=== PATIENT | female | born 1965 | race Hispanic/Latino ===

== ENCOUNTER 2017-09-06 07:57 | Outpatient (CLI) | payer BC ==
--- NOTE | 2017-09-06 14:08 | NM ---
HEPATOBILIARY SCAN: Comparison: None. History: Right upper quadrant abdominal pain. Technique: A hepatobiliary scan was performed after administration of 5.2 mCi Technetium 99M Mebrofe iban. FINDINGS: Prompt uptake of the radiopharmaceutical by the liver is seen. No photopenic liver lesions are seen. Biliary activity is seen within 5 minutes. Gallbladder activity is seen within 10 minutes. Bowel ac tivity is seen within 15 minutes. The gallbladder ejection fraction was estimated after administration of 8 oz of Ensure PO. This was estimated at 61%. IMPRESSION: Normal hepatobiliary scan. POS: [facility]
== END 2017-09-06 07:58 | disposition home or self-care (01) ==
LOC: NM 07:57
PROVIDERS: ATTEND Internal Medicine Gastroenterology
DX: R10.11 Right upper quadrant pain (principal)
CPT/HCPCS: 78227; A9537

== ENCOUNTER 2018-07-23 14:16 | Outpatient (CLI) | payer BC | END 2018-07-23 14:17 | disposition home or self-care (01) | LOC: BICMAMMO 14:16 | DX: Z12.31 Encounter for screening mammogram for malignant neoplasm of breast (principal); Z13.820 Encounter for screening for osteoporosis; Z78.0 Asymptomatic menopausal state; M85.852 Other specified disorders of bone density and structure, left thigh | CPT/HCPCS: 77063; 77067; 77080 ==

== ENCOUNTER 2018-10-03 10:39 | Outpatient (CLI) | payer BC ==
--- NOTE | 2018-10-03 13:15 | RAD ---
LUMBAR SPINE BENDING MINIMUM 4 VIEWS: Date: 10/03/18 HISTORY: Spondylolisthesis. COMPARISON: None. FINDINGS: No acute fracture or malalignment. There is an enlarged left L5 transverse process with anomalous art iculation with the sacrum. No significant listhesis. No translation with flexion or extension. IMPRESSION: 1. No significant translation with flexion or extension. 2. Mild narrowing of the interspinous space between L3-L5 spinous processes. POS: [facility]
== END 2018-10-03 10:40 | disposition home or self-care (01) ==
LOC: BICRAD 10:39
PROVIDERS: ATTEND Anesthesiology Pain Medicine
DX: M43.16 Spondylolisthesis, lumbar region (principal); M48.061 Spinal stenosis, lumbar region without neurogenic claudication
CPT/HCPCS: 72120

== ENCOUNTER 2018-12-08 07:00 | Emergency (ER) | payer BC ==
[2018-12-08 08:00] LABS: #Basophils 0.1 thou/uL (0.0-0.2); #Eosinphils 0.2 thou/uL (0.0-0.7); #Lymphocytes 2.5 thou/uL (1.20-3.40); #Monocytes 0.7 thou/uL (0.11-0.59); #Neutrophils 4.5 thou/uL (1.40-6.50); %Eosinophils 2.4 % (0.0-10.0); %Lymphocytes 31.5 % (21.0-51.0); %Monocytes 8.2 % (0.0-10.0); Hemoglobin 13.3 g/dL (12.0-16.0); Mean Corpuscular HGB CONC 32.1 g/dL (32.0-36.0); Mean Corpuscular Hemoglobin 30.1 pg (27.0-31.0); Mean Corpuscular Volume 93.6 fL (78.0-98.0); Mean Platelet Volume 8.1 fL (7.4-10.4); Platelet Count 317 thou/uL (130-400); Red Blood Cell (RBC) Count 4.41 mill/uL (4.20-5.40); White Blood Cell (WBC) Count 7.9 thou/uL (4.8-10.8)
[2018-12-08] MEDS ORDERED: Acetaminophen 500 MG TAB ONE (08:13)
[2018-12-08] MEDS ORDERED: Nitroglycerin 2% Ointment 1 INCH/1 GM Packet ONE (08:13)
[2018-12-08 08:22] LABS: ALT (SGPT) 13 U/L (8-55); AST (SGOT) 13 U/L (5-34); Albumin 3.4 g/dL (3.5-5.0); Alkaline Phosphatase 49 U/L (40-150); Anion Gap 12 mmol/L (10-20); BUN (Urea Nitrogen) 10 mg/dL (9.8-20.1); Bilirubin, Total 0.5 mg/dL (0.2-1.2); CK (CPK) 22 U/L (29-168); Calc. Creatinine Clearance 0 mL/min (70-130); Calcium 8.8 mg/dL (7.8-10.44); Carbon Dioxide 25 mmol/L (22-29); Chloride 105 mmol/L (98-107); Estimated GFR-MDRD Greater than 90; Globulin 2.9 g/dL (2.4-3.5); Glucose 108 mg/dL (70-105); Potassium 3.6 mmol/L (3.5-5.1); Protein, Total 6.3 g/dL (6.0-8.3); Sodium 138 mmol/L (136-145)
--- NOTE | 2018-12-08 09:02 | RAD ---
CHEST 2 VIEWS: HISTORY: Cough. Dyspnea. COMPARISON: 02/11/2011. FINDINGS: Cardiac silhouette and pulmonary vasculature are unremarkable. Mediastinum is midline. No confluent airspace consolidation, pneumothorax, or pleural fluid. IMPRESSION: No active cardiopulmonary abnormalities are demonstrated. POS: [facility]
--- NOTE | 2018-12-08 10:55 | CT ---
CONTRAST ENHANCED CTA CHEST: Date: 12/08/18 HISTORY: Dyspnea. History of hypertension. Cough for 2 weeks. FINDINGS: Contrast enhanced CTA chest performed. No definite evidence of lung parenchymal mass is seen. Areas of scarring seen in the anterior aspect of the left lower lobe. No definite evidence of pleural or pericardial effusions seen. No evidence of aortic dissection or aneurysm seen. No evidence of filling defects seen in the pulmonary arteries to suggest pulmonary emboli. IMPRESSION: No evidence of pulmonary emboli. POS: [facility]
[2018-12-08] MEDS ORDERED: ISOVUE-370 76%-LOCM 1 ML ONE (11:18)
== END 2018-12-08 11:16 | disposition home or self-care (01) ==
LOC: ERS 07:00
DX: R05 Cough (principal); F41.9 Anxiety disorder, unspecified; F32.9 Major depressive disorder, single episode, unspecified
CPT/HCPCS: 36415; 71046; 71275; 80053; 82550; 83880; 84484; 85025; 85379; 87040; 93005; 94760; 96360; 96361

== ENCOUNTER 2019-05-05 08:35 | Outpatient (CLI) | payer BC ==
--- NOTE | 2019-05-05 10:53 | CT ---
CT Lumbar Spine WO Con History: Lumbar spondylosis, pseudoarthrosis Comparison: Radiograph 2018 Findings: Aortic contour is nonaneurysmal. No retroperitoneal periaortic adenopathy. No hydronephrosi s. No acute fracture or malalignment. 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 Moderate degenerative disease of the SI joints. Levels are as follows: L1/L2: Normal disc. No neural foraminal or spinal canal narrowing. L2/L3: Low-grade circumferential disc bulge. Mild facet arthrosis. Old bilateral neural foraminal jhoan rowing. No significant spinal canal narrowing. L3/L4: Low-grade circumferential disc bulge. Mild facet arthrosis. Mild bilateral neural foraminal na rrowing. Spinal canal is not significantly narrowed. L4/L5: Moderate to severe hypertrophic facet degenerative changes. Low-grade circumferential disc bul ge. Moderate bilateral neural foraminal narrowing. Spinal canal not significantly narrowed. L5/S1: Mild degenerative disc space height loss. Mild facet arthrosis. No significant neural foramina l or spinal canal narrowing. Impression: 1. Mild to moderate spondylosis as described. 2. 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
== END 2019-05-05 08:36 | disposition home or self-care (01) ==
LOC: BICCT 08:35
PROVIDERS: ATTEND Nurse Practitioner Family
DX: S32.009K Unspecified fracture of unspecified lumbar vertebra, subsequent encounter for fracture with nonunion (principal); M47.816 Spondylosis without myelopathy or radiculopathy, lumbar region
CPT/HCPCS: 72131

== ENCOUNTER 2019-07-16 09:01 | Outpatient (CLI) | payer BC ==
--- NOTE | 2019-07-16 10:18 | MRI ---
MRI lumbar spine noncontrast: HISTORY: Low back pain. Bilateral hip pain, times one year COMPARISON: None Correlation: CT lumbar spine 05/05/2019 FINDINGS: Appropriate T1 marrow signal intensity of the lumbar vertebra. Lumbar spine vertebral body height is maintained. No fracture. No significant STIR hyperintensity to suggest vertebral body edema or ligamentous injury. Intrinsic T1 and T2 hyperintensity at L3 and L5 due to vertebral body hemangioma Appropriate signal intensity of the paraspinal muscles. Appropriate signal intensity in the visualize d solid organs T2 hyperintensities in the right lower quadrant (axial image 25 and 26, series 7) evaluated T2 hyperintensities in the left neural foramina at T11-T12, T12-L1 the right neural foramina at T12-L 1 and L1-L2. Multilevel perineural sleeve cysts are favored. T12-L1:Adequate disc hydration. No significant central canal stenosis or significant neural foraminal narrowing L1-L2:Adequate disc hydration. No significant central canal stenosis or significant neural foraminal narrowing. L2-L3:Adequate disc hydration. No significant central canal stenosis or significant neural foraminal narrowing. L3-L4:Adequate disc hydration. Minimal generalized disc bulge, ligament flavum thickening and facet h ypertrophy do not result in any significant central canal stenosis. Minimal narrowing of the thecal sac. Bilaterally, neural foramina are patent. L4-L5:Adequate disc hydration. Broad-based disc bulge abuts the thecal sac. There is bilateral facet hypertrophy. No significant central canal stenosis. Bilaterally, neural foramina are patent. L5-S1:Adequate disc hydration. No significant central canal stenosis. 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 Uncertain significance 2. No significant central canal stenosis or significant neural foraminal narrowing, throughout the jessica mbar spine 3. Incompletely evaluated possible cystic lesions in the right lower quadrant. Consider further evalu ation with abdomen pelvis CT with oral and IV contrast
== END 2019-07-16 09:02 | disposition home or self-care (01) ==
LOC: BICMRI 09:01
PROVIDERS: ATTEND Physician Assistant Surgical
DX: M54.16 Radiculopathy, lumbar region (principal); M53.3 Sacrococcygeal disorders, not elsewhere classified
CPT/HCPCS: 72148

== ENCOUNTER 2019-08-20 08:13 | Outpatient (CLI) | payer BC ==
--- NOTE | 2019-08-20 15:59 | CT ---
CT Abdomen Pelvis W Con: 08/20/2019 12:00 AM CLINICAL INFORMATION: Cyst in the right lower quadrant seen on lumbar MRI COMPARISON: MRI lumbar spine 07/16/2019 TECHNIQUE: Multiple contiguous axial images were obtained and a CT of the abdomen and pelvis with IV contrast. Oral contrast was administered. Coronal and sagittal reformats were performed. FINDINGS: Lower Chest: within normal limits. Abdomen: Liver: within normal limits. Bile Ducts: Normal caliber. Gallbladder: No calcified gallstones. Normal caliber wall. Pancreas: within normal limits. Spleen: within normal limits. Adrenals: within normal limits. Kidneys: within normal limits. Pelvis: Reproductive Organs: Status post hysterectomy. Ureters: within normal limits. Bladder: within normal limits. Peritoneum: No ascites or free air, no fluid collection. Bowel: Normal caliber. There are 2 well-circumscribed oval-shaped cystic structures associated with a loop of small bowel in the right lower quadrant of the abdomen. These each measure approximately 2.7 cm in size. Mesentery and Retroperitoneum: No enlarged mesenteric or retroperitoneal lymph nodes. Vessels: Normal. Abdominal Wall: within normal limits. Bones: Within normal limits IMPRESSION: Cystic structures in the right lower quadrant of the abdomen are nonspecific but likely benign. These could represent ovarian cysts/follicles with an ovarian tissue that is intimately associated with a loop of small bowel in the right lower quadrant of the abdomen. Alternatively, these could represen t enteric duplication cysts.
[2019-08-20] MEDS ORDERED: ISOVUE-370 76%-LOCM 1 ML ONE (18:12)
== END 2019-08-20 08:14 | disposition home or self-care (01) ==
LOC: BICCT 08:13
PROVIDERS: ATTEND Physician Assistant Medical
DX: R19.00 Intra-abdominal and pelvic swelling, mass and lump, unspecified site (principal)
CPT/HCPCS: 74177; Q9966

== ENCOUNTER 2021-02-22 14:43 | Outpatient (CLI) | payer BC | END 2021-02-22 14:44 | disposition home or self-care (01) | LOC: BICMAMMO 14:43 | PROVIDERS: ATTEND Family Medicine | DX: N95.9 Unspecified menopausal and perimenopausal disorder (principal); M85.852 Other specified disorders of bone density and structure, left thigh; M85.851 Other specified disorders of bone density and structure, right thigh | CPT/HCPCS: 77063; 77067; 77080 ==

== ENCOUNTER 2021-04-18 13:55 | Outpatient (CLI) | payer BC ==
[~2021-04-18 13:55] MED LIST: Magnevist 469MG/ML 20 ML VIAL ONE
== END 2021-04-18 13:56 | disposition home or self-care (01) ==
LOC: TBSIIMAG 13:55
PROVIDERS: ATTEND Nurse Practitioner Family
DX: M48.062 Spinal stenosis, lumbar region with neurogenic claudication (principal); M47.816 Spondylosis without myelopathy or radiculopathy, lumbar region; Z98.1 Arthrodesis status
CPT/HCPCS: 72158; A9579

== ENCOUNTER 2021-10-05 14:34 | Outpatient (CLI) | payer BC ==
[2021-10-06 17:37] LABS: SARS-CoV-2 PCR by NAA Not Detected (NotDetected)
== END 2021-10-05 14:35 | disposition home or self-care (01) ==
LOC: LABBT 14:34
PROVIDERS: ATTEND Anesthesiology Pain Medicine
DX: Z01.812 Encounter for preprocedural laboratory examination (principal); Z20.822 Contact with and (suspected) exposure to COVID-19
CPT/HCPCS: U0003; U0005

== ENCOUNTER 2021-10-10 10:33 | Day surgery (SDC) | payer BC ==
[2021-10-09 13:54] VITALS: BMI 32.3
[2021-10-10] MEDS ORDERED: CEFAZOLIN 1 GM VIAL ONE (11:21)
[2021-10-10] MEDS ORDERED: Sodium Chloride 0.9% 100 ML ONE (11:21)
[2021-10-10] MEDS ORDERED: Propofol 500 MG/50 ML VIAL ONE (11:52)
[2021-10-10] MEDS ORDERED: Ketamine 50 MG/ML (10ML VIAL) ONE (11:52)
[2021-10-10] MEDS ORDERED: Fentanyl 100 MCG/2 ML VIAL ONE ×2 (11:52→13:17)
[2021-10-10] MEDS ORDERED: Midazolam HCl 2 mg/2 ml Vial ONE (11:52)
[2021-10-10] MEDS ORDERED: Bupivacaine PF 0.5% 30 ML VIAL ONE (12:19)
[2021-10-10] MEDS ORDERED: EPINEPHrine 1 MG/ML AMP ONE (12:19)
[2021-10-10] MEDS ORDERED: Lidocaine 2% PF 5 ML VIAL ONE (12:19)
[2021-10-10] MEDS ORDERED: Ondansetron PF 4 MG/2 ML Vial ONE (13:49)
[2021-10-10] MEDS ORDERED: Dexamethasone 20 MG/5 ML VIAL ONE (13:49)
[2021-10-10] MEDS ORDERED: HYDROcodone/Acetaminophen 5/325 mg Tablet ONE (16:09)
== END 2021-10-10 16:58 | disposition home or self-care (01) ==
LOC: SDC 10:33
PROVIDERS: ATTEND Anesthesiology Pain Medicine
PROC: 0JH70DZ Insertion of Multiple Array Stimulator Generator into Back Subcutaneous Tissue and Fascia, Open Approach (ICD-10-PCS; principal; 2021-10-10)
PROC: 00HU3MZ Insertion of Neurostimulator Lead into Spinal Canal, Percutaneous Approach (ICD-10-PCS; principal; 2021-10-10)
DX: M96.1 Postlaminectomy syndrome, not elsewhere classified (principal); M54.16 Radiculopathy, lumbar region; G89.4 Chronic pain syndrome; Z79.899 Other long term (current) drug therapy
CPT/HCPCS: 72020; 76000; C1778; C1787; C1820; J0171; J0690; J2001; J2250; J2704; J3010; J3490; L8689; S0020

== ENCOUNTER 2022-06-22 09:37 | Outpatient (CLI) | payer BC | END 2022-06-22 09:38 | disposition home or self-care (01) | LOC: BICRAD 09:37 | PROVIDERS: ATTEND Family Medicine | DX: M25.511 Pain in right shoulder (principal) ==

== ENCOUNTER 2022-07-05 11:44 | Outpatient (CLI) | payer BC | END 2022-07-05 11:45 | disposition home or self-care (01) | LOC: BICMAMMO 11:44 | PROVIDERS: ATTEND Family Medicine | DX: Z12.31 Encounter for screening mammogram for malignant neoplasm of breast (principal) | CPT/HCPCS: 77063; 77067 ==

== ENCOUNTER 2022-10-26 12:11 | Outpatient (CLI) | payer BC ==
[2022-10-26] MEDS ORDERED: Lidocaine 1% PF 5 ML VIAL ONE (13:15)
[2022-10-26] MEDS ORDERED: EPINEPHrine 1 MG/ML VIAL ONE (13:15)
[2022-10-26] MEDS ORDERED: Sodium Chloride 0.9% (PF) 10 ML VIAL ONE (13:15)
[2022-10-26] MEDS ORDERED: Iopamidol 300 61% 50 ML VIAL FS ONE (13:15)
== END 2022-10-26 12:12 | disposition home or self-care (01) ==
LOC: RAD 12:11
PROVIDERS: ATTEND Orthopaedic Surgery
DX: M24.811 Other specific joint derangements of right shoulder, not elsewhere classified (principal); S46.811A Strain of other muscles, fascia and tendons at shoulder and upper arm level, right arm, initial encounter
CPT/HCPCS: 23350; J0171; Q9967

== ENCOUNTER 2023-01-11 07:20 | Observation (INO) | payer BC ==
[2023-01-11] MEDS ORDERED: Nitroglycerin 2% Ointment 1 INCH/1 GM Packet ONE (07:56)
[2023-01-11 08:17] LABS: #Eosinphils 0.1 thou/uL (0.0-0.7); #Lymphocytes 1.8 thou/uL (1.20-3.40); #Monocytes 0.5 thou/uL (0.11-0.59); %Basophils 0.8 % (0.0-1.0); %Eosinophils 2.6 % (0.0-10.0); %Lymphocytes 40.1 % (21.0-51.0); %Monocytes 11.1 % (0.0-10.0); %Neutrophils 45.4 % (42.0-75.0); Hemoglobin 14.7 g/dL (12.0-16.0); Mean Corpuscular HGB CONC 34.6 g/dL (32.0-36.0); Mean Corpuscular Volume 92.7 fl (78.0-98.0); Mean Platelet Volume 9.1 fL (7.4-10.4); Platelet Count 216 10x3/uL (130-400); White Blood Cell (WBC) Count 4.5 10x3/uL (4.8-10.8)
[2023-01-11 08:42] LABS: ALT (SGPT) 28 U/L (8-55); AST (SGOT) 20 U/L (5-34); Albumin 4.3 g/dL (3.5-5.0); Alkaline Phosphatase 67 U/L (40-110); Anion Gap 13 mmol/L (10-20); BUN (Urea Nitrogen) 6 mg/dL (9.8-20.1); Bilirubin, Total 0.6 mg/dL (0.2-1.2); Calc. Creatinine Clearance 0 mL/min (70-130); Calcium 9.6 mg/dL (7.8-10.44); Carbon Dioxide 26 mmol/L (22-29); Chloride 102 mmol/L (98-107); Estimated GFR 95; Glucose 99 mg/dL (70-105); Potassium 3.6 mmol/L (3.5-5.1); Protein, Total 7.3 g/dL (6.0-8.3); Sodium 137 mmol/L (136-145)
[2023-01-11] MEDS ORDERED: Morphine 4 MG/ML VIAL ONE (09:33)
[2023-01-11] MEDS ORDERED: Ondansetron PF 4 MG/2 ML Vial ONE (09:33)
[2023-01-11] MEDS ORDERED: Aspirin Chewable 81 MG TAB ONE (12:27)
[2023-01-11] MEDS ORDERED: Ketorolac Tromethamine 30 MG/ML VIAL ONE (12:53)
[2023-01-11] MEDS ORDERED: Iopamidol-370 76% 500 ML 1 ML ONE (13:49)
[2023-01-11 15:54] LABS: Troponin I 0.013 ng/mL (< 0.028)
[2023-01-11 19:31] VITALS: BMI 34.1
[2023-01-11] MEDS ORDERED: HYDROcodone/Acetaminophen 5/325 mg Tablet PO PRN (20:15)
[2023-01-11] MEDS: Nitroglycerin 2% Ointment 1 INCH/1 GM Packet TOP SCH (21:14)
[2023-01-11] MEDS: Acetaminophen 500 MG TAB PO PRN (21:19)
[2023-01-12] MEDS ORDERED: hydrALAZINE 20 MG/ML VIAL SLOW IVP SCH (03:45)
[2023-01-12] MEDS: Acetaminophen 500 MG TAB PO PRN (03:47)
[2023-01-12] MEDS: Nitroglycerin 2% Ointment 1 INCH/1 GM Packet TOP SCH ×2 (04:03→12:38)
[2023-01-12 05:27] LABS: Cardiac Risk 5.7 (Less than 4.5)
[2023-01-12] MEDS ORDERED: Aspirin Chewable 81 MG TAB PO SCH (09:00)
[2023-01-12] MEDS ORDERED: Regadenoson 0.4 MG/5 ML SYRINGE ONE (11:17)
[2023-01-12] MEDS ORDERED: Simethicone Chewable 80 MG TAB PO PRN (12:44)
[2023-01-12] MEDS ORDERED: Carvedilol 6.25 MG TAB PO SCH (12:45)
[2023-01-12] MEDS ORDERED: Lisinopril 20 MG TAB PO SCH (12:45)
[2023-01-12] MEDS ORDERED: Acetaminophen 500 MG TAB PO SCH (12:45)
[2023-01-12] MEDS ORDERED: Bisacodyl 5 MG TAB PO SCH (12:45)
[2023-01-12] MEDS ORDERED: Acetaminophen 325 MG TAB PO PRN (13:16)
[2023-01-12] MEDS ORDERED: ALPRAZolam 0.25 MG TAB PO SCH (15:00)
[2023-01-12] MEDS ORDERED: valACYclovir 500 MG TAB PO SCH (15:00)
[2023-01-12] MEDS ORDERED: buPROPion HCl 100 MG TAB PO SCH (15:15)
[2023-01-12] MEDS ORDERED: Citalopram 20 MG TAB PO SCH (15:15)
[2023-01-12 18:19] VITALS: BP 164/93; TEMP 97.5
== END 2023-01-12 18:08 | disposition home or self-care (01) ==
LOC: ERS 07:20 → ERHOLD 12:39 → 2NO 18:33
PROVIDERS: ADMIT Internal Medicine; ATTEND Internal Medicine
DX: R07.9 Chest pain, unspecified (principal); I10 Essential (primary) hypertension; E78.00 Pure hypercholesterolemia, unspecified; B02.9 Zoster without complications; E66.9 Obesity, unspecified; Z68.34 Body mass index [BMI] 34.0-34.9, adult; Z79.899 Other long term (current) drug therapy; Z96.82 Presence of neurostimulator; Z20.822 Contact with and (suspected) exposure to COVID-19
CPT/HCPCS: 36415; 71045; 71275; 78452; 80053; 80061; 83735; 84443; 84484; 85025; 85379; 93005; 93017; 94760; 96374; 96375; A9500; G0378; J0360; J1885; J2270; J2405; J2785; Q9967; U0003; U0005

== ENCOUNTER 2024-04-22 09:44 | Outpatient (CLI) | payer BC | END 2024-04-22 09:45 | disposition home or self-care (01) | LOC: MRI 09:44 | PROVIDERS: ATTEND Orthopaedic Surgery | DX: M47.26 Other spondylosis with radiculopathy, lumbar region (principal); Z98.890 Other specified postprocedural states | CPT/HCPCS: 72148 ==